=== PATIENT | female | born 1995 | race African-American/Black ===

== ENCOUNTER 2017-09-03 00:18 | Emergency (ER) | payer SELFPAY ==
[~2017-09-03] VITALS: Ht 167.6 cm; Wt 56.7 kg
--- NOTE | 2017-09-03 00:50 | Emergency Room Report ---
History of Present Illness General Chief Complaint: Female Urogenital Problems Source: Patient Present Illness HPI Is a 22-year-old female with no past medical history. She presents with chief complaint of STD exposure. Her boyfriend is here for penile discharge. She has no symptoms. No history of STD. Allergies: Coded Allergies: No Known Allergies (Unverified , 09/03/17) Patient History Past Medical History: none, see triage record, old chart reviewed Past Surgical History: none Pertinent Family History: none Social History: Denies: smoking Last Menstrual Period: on period now Now: No Immunizations: other Reviewed Nursing Documentation: PMH: Agreed, PSxH: Agreed Nursing Documentation-PMH Past Medical History: No Stated History Review of Systems Eye: Denies: eye pain, blurred vision ENT: Denies: ear pain, nose congestion, throat swelling Respiratory: Denies: cough, shortness of breath Cardiovascular: Denies: chest pain, palpitations Gastrointestinal: Denies: abdominal pain, diarrhea, nausea, vomiting Musculoskeletal: Denies: back pain, joint pain Skin: Denies: rash Neurological: Denies: headache, numbness Endocrine: Denies: increased thirst, increased urine Hematologic/Lymphatic: Denies: easy bruising All Other Systems: negative except mentioned in HPI Physical Exam Vital Signs Date Time Temp Pulse Resp B/P (MAP) Pulse Ox O2 Delivery O2 Flow Rate FiO2 09/03/17 00:22 98.1 78 18 114/68 99 Room Air vitals normal Sp02 EP Interpretation: reviewed, normal General Appearance: well appearing, no apparent distress, alert Head: normocephalic, atraumatic Eyes: bilateral eye PERRL, bilateral eye EOMI ENT: hearing grossly normal, normal pharynx Neck: full range of motion, supple, no meningismus Respiratory: chest non-tender, lungs clear, normal breath sounds Cardiovascular #1: regular rate, rhythm, no murmur Gastrointestinal: normal bowel sounds, non tender, no mass, no organomegaly, no bruit, non-distended Musculoskeletal: back normal, gait/station normal, normal range of motion Psychiatric: mood/affect normal Skin: warm/dry Medical Decision Making Diagnostic Impression: Primary Impression: STD exposure ER Course Patient with STD exposure. Most likely gonorrhea based on my exam of the boyfriend. She is asymptomatic. We'll discharge home. Last Vital Signs Date Time Temp Pulse Resp B/P (MAP) Pulse Ox O2 Delivery O2 Flow Rate FiO2 09/03/17 00:22 98.1 78 18 114/68 99 Room Air Status: improved Disposition: HOME, SELF-CARE Condition: Stable Additional Instructions: I recommend outpatient testing for HIV, hepatitis, syphilis and other STDs. This can be done anonymously. Followup with your Dr. as needed in 7 days. Return if worse. ROBIN AMBROSIO M.D. Sep 03, 2017 00:50
[2017-09-03] MEDS ORDERED: Azithromycin 250mg tab ORAL ONE (01:00)
[2017-09-03] MEDS ORDERED: Lidocaine 1% MPF 10mg/ml 5ml INJ ONE (01:00)
[2017-09-03 01:16] VITALS: BP_SYST 114; BP_SYST 122; BP_DIAS 68; BP_DIAS 69
== END 2017-09-03 01:17 | disposition home or self-care (01) ==
LOC: EMR 00:35
DX: Z20.2 Contact with and (suspected) exposure to infections with a predominantly sexual mode of transmission (principal)
CPT/HCPCS: 96372; 99283; J0696

== ENCOUNTER 2019-05-17 20:17 | Emergency (ER) | payer SELFPAY ==
[~2019-05-17] VITALS: Ht 167.6 cm; Wt 49.9 kg
--- NOTE | 2019-05-17 20:41 | Emergency Room Report ---
History of Present Illness General Chief Complaint: Skin Rash/Abscess Source: Patient Present Illness HPI 23-year-old female with no segment past medical history here complaining of 2 days of pain and swelling of her left calf. Patient does not recall whether she was bit by a spider or insect however reports that it started outside. Planes of pruritus as well as 5 out of 10 pain at the site of bite. Erythema left calf slightly warm to touch. Denies fever chills, pain radiation, calf tenderness, chest pain, shortness of breath, and other associated symptoms. Denies recent camping or travel. Medication for symptom relief. Allergies: Coded Allergies: No Known Allergies (Unverified , 09/03/17) Patient History Past Medical History: see triage record Past Surgical History: unable to obtain Pertinent Family History: none Last Menstrual Period: 05/07/2019 Now: No Immunizations: UTD Reviewed Nursing Documentation: PMH: Agreed; PSxH: Agreed Nursing Documentation-PMH Past Medical History: No Stated History Review of Systems All Other Systems: negative except mentioned in HPI Physical Exam Vital Signs Date Time Temp Pulse Resp B/P (MAP) Pulse Ox O2 Delivery O2 Flow Rate FiO2 05/17/19 20:27 98.2 81 16 104/59 (74) 98 Room Air Sp02 EP Interpretation: reviewed, normal General Appearance: no apparent distress, alert, GCS 15, non-toxic Head: normocephalic, atraumatic Eyes: bilateral eye normal inspection, bilateral eye PERRL ENT: hearing grossly normal, normal pharynx, no angioedema, normal voice Neck: full range of motion, supple/symm/no masses Respiratory: chest non-tender, lungs clear, normal breath sounds, speaking full sentences Cardiovascular #1: regular rate, rhythm, no edema, no murmur Cardiovascular #2: 2+ dorsalis pedis (R), 2+ dorsalis pedis (L) Gastrointestinal: normal bowel sounds, non tender, soft, non-distended, no guarding, no rebound Rectal: deferred Genitourinary: no CVA tenderness Musculoskeletal: back normal, gait/station normal, normal range of motion, non- tender, no calf tenderness Neurologic: alert, oriented x3, responsive, motor strength/tone normal, sensory intact, speech normal Psychiatric: judgement/insight normal, memory normal, mood/affect normal, no suicidal/homicidal ideation Skin: other - Cellulitis left calf due to insect bite Lymphatic: no adenopathy Medical Decision Making PA Attestation All diagnoses and treatment plans were reviewed and discussed with my supervising physician Dr. Celaya Diagnostic Impression: Primary Impression: Infected insect bite ER Course 23-year-old female with no segment past medical history here complaining of 2 days of pain and swelling of her left calf. Patient does not recall whether she was bit by a spider or insect however reports that it started outside. Planes of pruritus as well as 5 out of 10 pain at the site of bite. Erythema left calf slightly warm to touch. Denies fever chills, pain radiation, calf tenderness, chest pain, shortness of breath, and other associated symptoms. Denies recent camping or travel. Medication for symptom relief. Ddx considered but are not limited to : Cellulitis, infected insect bite, superficial infection, abscess Vital signs: are WNL, pt. is afebrile H&PE are most consistent with: Infected insect bite ORDERS: Augmentin, hydrocortisone cream ED INTERVENTIONS: Augmentin DISCHARGE: At this time pt. is stable for d/c to home. Will provide printed patient care instructions, and any necessary prescriptions. Care plan and follow up instructions have been discussed with the patient prior to discharge. Patient is directed follow-up with a primary care provider and if worsening symptoms return to the emergency room Last Vital Signs Date Time Temp Pulse Resp B/P (MAP) Pulse Ox O2 Delivery O2 Flow Rate FiO2 05/17/19 20:27 98.2 81 16 104/59 (74) 98 Room Air Disposition: HOME, SELF-CARE Condition: Stable Scripts Hydrocortisone/Aloe Vera 1%* (HYDROCORTISONE-ALOE 1% CREAM*) Y Cr 1 APPLIC TOPIC Q6H PRN for Itching, #30 GM Prov: Adrien Funk 05/17/19 Amoxicillin/Potassium Clav 875-125* (AUGMENTIN 875-125 TABLET*) 1 Each Tablet 1 TAB ORAL TWICE A DAY for 7 Days, #14 TAB Prov: Adrien Funk 05/17/19 Patient Instructions: Insect Bite, [id number] Additional Instructions: Take medication as directed follow-up with your primary care provider worsening symptoms return to the emergency room Adrien Funk May 17, 2019 20:41
[2019-05-17] MEDS ORDERED: AUGMENTIN 875-1 EAC1 ORAL (20:42)
[2019-05-17] MEDS ORDERED: HYDROCORTISONE-30 GM TOPIC (20:42)
[2019-05-17 20:45] VITALS: BP 104/59
[2019-05-17] MEDS ORDERED: Augmentin 875mg Tab ORAL ONE (20:45)
--- NOTE | 2019-05-17 20:45 | NUR ---
ED Nurse Note: Patient walked in to ER c/o spider bites. AAO x4, VSS at this time.
[2019-05-17 21:04] VITALS: BP 104/59
--- NOTE | 2019-05-17 21:04 | NUR ---
ED Nurse Note: Pt cleared by health care Provider for discharge. DC instructions/prescription was given and explained to pt and verbalized understanding of teachings. All medical deviecs such as ID band removed. Pt is AAO x4, ambulatory and left with all personal belongings.
== END 2019-05-17 21:05 | disposition home or self-care (01) ==
LOC: EMR 20:31
DX: S80.862A Insect bite (nonvenomous), left lower leg, initial encounter (principal); L08.9 Local infection of the skin and subcutaneous tissue, unspecified; W57.XXXA Bitten or stung by nonvenomous insect and other nonvenomous arthropods, initial encounter; Y92.9 Unspecified place or not applicable
CPT/HCPCS: 99282